=== PATIENT | male | born 1955 | race Caucasian/White ===

== ENCOUNTER 2024-01-06 09:45 | Emergency (ER) | payer MEDICARE, BC, SELFPAY ==
[2024-01-06 09:53] VITALS: BP 158/77; PULSE 70; RESP 18; TEMP 36.6; O2SAT 97; BMI 38.3
--- NOTE | 2024-01-06 10:01 | ED_ITS ---
HPI - Weakness General Time Seen by Provider: 10:01 Date Seen: 01/06/24 Chief complaint: Weakness Stated complaint: shortness of breath Time Seen by Provider: 01/06/24 09:47 Source: patient and RN notes reviewed Mode of arrival: ambulatory Limitations: no limitations History of Present Illness HPI Narrative: This patient is coming in with weeks to months of progressive weakness/fatigue with activity. He states he just gets excessively fatigued and maybe slightly short of breath with activity now. Even going for his walks limits him. He notes no chest pain. He does note that his feet swell during the day, go down at night. He thinks he has had maybe a colder seasonal allergies the last 3 weeks but denies any nasal congestion or runny nose, not really coughing, just states he is feeling ill. He does make the comment that he gets the same thing every year and gets an antibiotic. He reportedly called the clinic and they told him to come into the ER. He is not actively having any symptoms at this time. He is on levothyroxine, gets this checked yearly, thinks it has been about a year. He was trying to get into the clinic and they referred him here. He has no prior cardiac history, states he had a stress test about a year ago, states the doctor just wanted him to have a. He is not aware of any symptoms that prompted this stress test. He does have a brother that is had a heart attack. When he does exercise his legs will feel heavy but he is not having pain in them per se. He has a remote history of smoking but otherwise declines any prior lung issues. We have not seen him in our system for years. Looking in our remote records, he had a sleep note from 2009 showing severe sleep apnea back then. Will need to clarify if he is using CPAP. He also has a history of neuroendocrine carcinoma, was discharged from Oncology care by Dr. Andrea in 2011. He reportedly had been 5 years free after chemotherapy and field radiation and was able to discharge from care. Related Data Home Medications Medication Instructions Recorded Confirmed amlodipine 10 mg tablet 10 mg PO QDAY 02/19/22 11/11/23 ergocalciferol (vitamin D2) 50,000 unit PO 02/19/22 11/11/23 unit tablet fosinopril 40 mg tablet 40 mg PO QDAY 02/19/22 11/11/23 labetalol 100 mg tablet 100 mg PO QDAY 02/19/22 11/11/23 levothyroxine 112 mcg capsule 112 mcg PO QDAY 02/19/22 11/11/23 omeprazole 20 mg capsule,delayed 20 mg PO QDAY 02/19/22 11/11/23 release triamterene 37.5 1 tab PO QAM 02/19/22 11/11/23 mg-hydrochlorothiazide 25 mg tablet Previous Rx's Medication Instructions Recorded fluorouracil 5 % topical cream See Rx Instructions .Route 02/26/22 .COMPLEX #40 grams triamcinolone acetonide 0.025 % 1 applic topical BID #80 grams 03/18/23 topical cream Allergies Allergy/AdvReac Type Severity Reaction Status Date / Time doxazosin Allergy Mild Rash Verified 11/11/23 09:23 Review of Systems Status of ROS: Reports: 6 or more systems reviewed and unremarkable except as noted in History and below PFSH PFS Social History Smoking Status: Never smoker Exam Const: Vital Signs, click to edit/add: Vital Signs - 24 hr 01/06/24 09:53 Temperature 97.8 F Pulse Rate [Right Pulse Oximeter] 70 Respiratory Rate 18 Blood Pressure [Ri ght Upper Arm] 158/77 H Pulse Oximetry 97 Oxygen Delivery Me thod Room Air This is a 68-year-old male that is obese. He is alert, interactive, no apparent distress. Sclera clear, conjugate gaze. Symmetrical facial function, able to speak in complete sentences. Neck is quite thick but do not no jugular venous distension, no adenopathy, no thyromegaly masses or nodules. Lungs are clear, good air entry, no wheezing or crackles, no tachypnea. CV regular rate and rhythm, no murmur, normal S1-S2, no S3-S4. Abdomen is obese but soft, do not feel any masses organomegaly but adiposity does preclude good examination. He is certainly not tender. He does have sock lines at his ankles, does have about 1 to 2+ pretibial pitting edema that is symmetric. Patient was ambulatory into the ED of his own accord. Documenting provider has reviewed patient's vital signs: yes Course Course ED Course: This patient with underlying hypertension, history of sleep apnea her is here with fatigue/weakness and mild shortness of breath with exertion. This certainly could be cardiac, respiratory, generalized deconditioning. It could be complications of sleep apnea like pulmonary hypertension. Have reviewed with this patient that we can do some baseline screening. Just hearing his history, do think that he likely needs an updated echo if he has not had one. Patient is showing no evidence of acute decompensated cardiac or heart issues. He is on amlodipine which could be confounding the peripheral edema. The maxi it he is on may not be enough to counteract the effects of amlodipine. Reevaluation(s) Time of Reevaluation #1: 11:54 Vital Signs Vital signs: Initial Vital Signs Temperature 97.8 F 01/06/24 09:53 Temperature Source Temporal Artery Scan 01/06/24 09:53 Pulse Rate 70 01/06/24 09:53 Pulse Rhythm Regular 01/06/24 09:53 Pulse Strength 3+ Normal 01/06/24 09:53 Respiratory Rate 18 01/06/24 09:53 Blood Pressure 158/77 H 01/06/24 09:53 Blood Pressure Mean 104 01/06/24 09:53 Blood Pressure Position Sitting 01/06/24 09:53 Pulse Oximetry 97 01/06/24 09:53 Oxygen Delivery Method Room Air 01/06/24 09:53 Vital Signs Temperature 97.8 F 01/06/24 09:53 Pulse Rate 70 01/06/24 09:53 Respiratory Rate 18 01/06/24 09:53 Blood Pressure 158/77 H 01/06/24 09:53 Pulse Oximetry 97 01/06/24 09:53 Oxygen Delivery Method Room Air 01/06/24 09:53 Temperature 97.8 F 01/06/24 09:53 Pulse Rate 70 01/06/24 09:53 Respiratory Rate 18 01/06/24 09:53 Blood Pressure 158/77 H 01/06/24 09:53 Pulse Oximetry 97 01/06/24 09:53 Oxygen Delivery Method Room Air 01/06/24 09:53 MDM - Weakness Lab Data Attestation: I reviewed the patient's lab results. Labs: Lab Results 01/06/24 Range/Units 10:37 WBC 6.41 (4.50-11.00) K/uL RBC 4.81 (4.30-5.90) m/uL Hgb 11.8 L (13.5-17.5) gm/dL Hct 38.8 (37.0-53.0) % MCV 81 (80-100) fL MCH 25 L (26-34) pg MCHC 30 L (32-36) gm/dL RDW Coeff of [place] 16.1 H (11.5-15.5) % Plt Count 294 (140-440) K/uL Neut % (Auto) 58.4 (42.0-72.0) % Lymph % (Auto) 26.8 (20-44) % [place] % (Auto) 10.0 (0.0-11.0) % Eos % (Auto) 3.0 (0.0-7.0) % Baso % (Auto) 0.6 (0.0-3.0) % Neut # (Auto) 3.74 (1.7-7.0) K/uL Lymph # (Auto) 1.72 (0.90-2.90) K/uL [place] # (Auto) 0.60 (0.00-0.90) K/UL Eos # (Auto) 0.19 (0.00-0.50) K/uL Baso # (Auto) 0.04 (0.00-0.30) K/uL Abs Immat Gran (auto) 0.08 (0.00-0.30) K/uL Imm/Tot Granulo (auto) 1.2 % Sodium 140 (135-149) mmol/L Potassium 3.8 (3.6-5.1) mmol/L Chloride 103 (96-114) mmol/L Carbon Dioxide 29 (20-32) mmol/L Anion Gap 8 (7-15) mEq/L BUN 16 (7-30) mg/dL Creatinine 0.8 (0.5-1.5) mg/dL Estimated Creat Clear 61.50 Estimated GFR 96 ml/min Glucose 118 H (60-115) mg/dL Calcium 8.8 (8.4-10.6) mg/dL Magnesium 1.9 (1.5-2.6) mg/dL Total Bilirubin 0.8 (0.1-1.5) mg/dL AST 36 H (12-35) U/L ALT 41 (4-50) U/L Alkaline Phosphatase 120 (40-150) U/L Troponin I < 0.01 L (0.01-0.04) ng/mL C-Reactive Protein < 0.5 L (0.5-1.0) mg/dL NT-Pro-B Natriuret Pep 252 pg/mL Total Protein 6.9 (6.0-8.3) g/dL Albumin 4.2 (3.3-5.0) g/dL TSH 1.520 (0.270-4.200) uIU/mL Imaging Data Chest x-ray: Attestation: I have reviewed the pertinent imaging results. My impression: I see prominence in the perihilar area but no overt congestive heart failure, no pleural effusions, no infiltrate. Await Radiology over-read. Radiologist's impression: Patient: RAMANA FLORES Facility:?[facility] Patient ID:?[id number] Site Patient ID:?[id number]. Site :?[id number] Study:?XRay-Chest 2 VIEWS-01/06/2024 10:28:43 AM Ordering Physician:ANGELY Final Report: INDICATION: : Shortness of breath with exertion, fatigue TECHNIQUE: PA and lateral 2 view chest COMPARISON: None FINDINGS: Lung volumes are good. Prominent pulmonary vascular markings without edema. No pleural effusion. No pneumothorax. Heart size is large. Normal upper mediastinal contours. Surgical clips left axilla.. IMPRESSION: Prominent pulmonary vascular markings without pulmonary edema or effusions. Dictated by Janee King MD @ 01/06/2024 10:34:27 AM (Electronic Signature) ECG Data Attestation: I personally reviewed and interpreted this ECG as follows: (Normal sinus rhythm, 63 beats per minute. No acute ischemia, no infarct. QT corrected 474 milliseconds.) ECG interpretation date: 01/06/24 ECG interpretation time: 12:00 Discharge Plan Discharge Clinical Impression: Dyspnea on exertion Fatigue Qualifiers: Fatigue type: unspecified Qualified Code(s): R53.83 - Other fatigue Patient Disposition: Home, Self-Care Condition: Stable Instructions: Dyspnea (ED), Fatigue (ED) Additional Instructions: You need to follow up in clinic within the next couple of weeks. Your hemoglo bin here was 11.8, this needs to be compared with recent clinic values. If this is new mild anemia, your provider can appropriately work this up. Otherwise, with the chest x-ray findings of the prominent pulmonary vascularity without congestive heart failure, your dyspnea and fatigue with exertion, do think an echo needs to be obtain looking at the heart structures. With your long-term history of obstructive sleep apnea, pulmonary hypertension could be a possibility which can be further investigated. Consideration of cardiac stress testing and pulmonary function testing may also be possible tests your primary care provider can consider. At this time, there is nothing emergent that needs to be done. Would also recommend reviewing with your primary care provider your depended edema that comes through the day; this certainly can be a side effect of amlodipine. Your thyroid test TSH is still pending, we will contact you if it is abnormal. She please let your primary care doctor know that we did check this in the ER today. Activity Level: Activity as Tolerated Discharge Diet: Heart Healthy (2 gm sodium, low fat) Prescriptions: No Action omeprazole 20 mg capsule,delayed release(DR/EC) 20 mg PO QDAY triamterene-hydrochlorothiazid 37.5-25 mg tablet 1 tab PO QAM levothyroxine 112 mcg capsule 112 mcg PO QDAY labetalol 100 mg tablet 100 mg PO QDAY fosinopril 40 mg tablet 40 mg PO QDAY ergocalciferol (vitamin D2) 50,000 unit tablet PO amlodipine 10 mg tablet 10 mg PO QDAY triamcinolone acetonide 0.025 % cream 1 applic topical BID Qty: 80 1RF fluorouracil 5 % cream See Rx Instructions .ROUTE .COMPLEX Qty: 40 0RF Dose Instruction: APPLY TO AFFECTED AREA(S) TOPICALLY DIRECTED Rx Instructions: APPLY TO AFFECTED AREA(S) TOPICALLY DIRECTED Follow Up/Referrals: Kelvin Sumner MD [Primary Care Provider] - Stand Alone Forms: [place] Info Instructions
--- NOTE | 2024-01-06 10:09 | XR_ITS ---
Patient: RAMANA FLORES Facility:?[facility] Patient ID:?[id number] Site Patient ID:?[id number]. Site :?[id number] Study:?XRay-Chest 2 VIEWS-01/06/2024 10:28:43 AM Ordering Physician:ANGELY Final Report: INDICATION: : Shortness of breath with exertion, fatigue TECHNIQUE: PA and lateral 2 view chest COMPARISON: None FINDINGS: Lung volumes are good. Prominent pulmonary vascular markings without edema. No pleural effusion. No pneumothorax. Heart size is large. Normal upper mediastinal contours. Surgical clips left axilla.. IMPRESSION: Prominent pulmonary vascular markings without pulmonary edema or effusions. Dictated by Janee King MD @ 01/06/2024 10:34:27 AM Signed by:?Janee King MD @01/06/2024 10:34:27 AM (Electronic Signature)
[2024-01-06 10:48] LABS: Basophils Absolute Auto 0.04 K/uL (0.00-0.30); Basophils Percent Auto 0.6 % (0.0-3.0); Eosinophils Absolute Auto 0.19 K/uL (0.00-0.50); Hematocrit 38.8 % (37.0-53.0); Hemoglobin* 11.8 gm/dL (13.5-17.5); Immature Granulocytes Abs Auto 0.08 K/uL (0.00-0.30); Immature Granulocytes Pct Auto 1.2 %; Lymphocytes Absolute Auto 1.72 K/uL (0.90-2.90); Lymphocytes Percent Auto 26.8 % (20-44); Mean Corpuscular HGB Conc 30 gm/dL (32-36); Mean Corpuscular Hemoglobin 25 pg (26-34); Mean Corpuscular Volume 81 fL (80-100); Neutrophils Absolute Auto 3.74 K/uL (1.7-7.0); Neutrophils Percent Auto 58.4 % (42.0-72.0); Platelet Count* 294 K/uL (140-440); RDW Coefficient of Variation % 16.1 % (11.5-15.5); Red Blood Count 4.81 m/uL (4.30-5.90); White Blood Count* 6.41 K/uL (4.50-11.00)
[2024-01-06 10:50] LABS: Slide Review Reflex No
[2024-01-06 10:58] LABS: Albumin* 4.2 g/dL (3.3-5.0); Chloride* 103 mmol/L (96-114)
[2024-01-06 10:59] LABS: Potassium* 3.8 mmol/L (3.6-5.1); Sodium* 140 mmol/L (135-149)
[2024-01-06 11:01] LABS: Alkaline Phosphatase* 120 U/L (40-150); Anion Gap 8 mEq/L (7-15); Aspartate Amino Transferase* 36 U/L (12-35); Bilirubin Total* 0.8 mg/dL (0.1-1.5); Carbon Dioxide* 29 mmol/L (20-32); Creatinine* 0.8 mg/dL (0.5-1.5); Estimated Glomerular Filt Rate 96 ml/min; Total Protein* 6.9 g/dL (6.0-8.3)
[2024-01-06 11:02] LABS: Alanine Aminotransferase* 41 U/L (4-50); Blood Urea Nitrogen* 16 mg/dL (7-30); Calcium* 8.8 mg/dL (8.4-10.6); Glucose* 118 mg/dL (60-115); Magnesium* 1.9 mg/dL (1.5-2.6)
[2024-01-06 11:16] LABS: C Reactive Protein* < 0.5 mg/dL (0.5-1.0); NT Pro B Type NatriureticPept* 252 pg/mL; Troponin I* < 0.01 ng/mL (0.01-0.04)
== END 2024-01-06 12:10 | disposition home or self-care (01) ==
PROVIDERS: Emergency Provider Family Medicine; PCP Family Medicine
DX: R53.83 Other fatigue (principal); R06.09 Other forms of dyspnea
CPT/HCPCS: 36415; 71046; 80053; 83735; 83880; 84443; 84484; 85025; 86140; 93005; 99284